=== PATIENT | female | born 1960 | race Caucasian/White ===

== ENCOUNTER → 2016-04-08 | Outpatient (CLI) | payer OTHER ==
[~2016-04-08] MED LIST: BETH25TA2 PO; IBGARD PO; LACTCAP8 PO; NEXI20CA PO; SERT50 PO
[2016-04-10 03:51] LABS: IGA SERUM 122 mg/dL (81-463); TISSUE TRANSGLUTAMINASE AB IGG ND U/mL (())
[2016-04-10 23:54] LABS: ENDOMYSIAL AB TITER ND (<1:5); TISSUE TRANSGLUTAMINASE AB LESS THAN 1 U/mL (())
== END ==
LOC: PLAB 06:51
PROVIDERS: ATTEND Internal Medicine Gastroenterology
DX: R14.0 Abdominal distension (gaseous) (principal)
CPT/HCPCS: 82784; 83516

== ENCOUNTER → 2016-05-10 | Outpatient (CLI) | payer OTHER | LOC: TMNT 11:03 | PROVIDERS: ATTEND Internal Medicine Interventional Cardiology | DX: Z71.3 Dietary counseling and surveillance (principal) ==

== ENCOUNTER → 2016-05-15 | Outpatient (CLI) | payer OTHER ==
[2016-05-15 09:48] LABS: AUTOMATED NEUTROPHIL # 2.1 TH/MM3 (1.8-7.7); EOSINOPHIL # 0.2 TH/MM3 (0-0.4); HEMATOCRIT 37.8 % (35.0-46.0); HEMO FLAGS DIFF FINAL; LYMPHOCYTE # 1.7 TH/MM3 (1.0-4.8); MEAN CELL VOLUME 91.4 FL (80.0-100.0); MEAN CORPUSCULAR HEMOGLOBIN 31.1 PG (27.0-34.0); MEAN CORPUSCULAR HGB CONC 34.1 % (32.0-36.0); PLATELET COUNT 293 TH/MM3 (150-450); RED BLOOD COUNT 4.14 MIL/MM3 (4.00-5.30); RED CELL DISTRIBUTION WIDTH 12.7 % (11.6-17.2); WHITE BLOOD COUNT 4.4 TH/MM3 (4.0-11.0)
[2016-05-15 10:08] LABS: ALKALINE PHOSPHATASE 56 U/L (45-117); ALT (GPT) 15 U/L (10-53); ANION GAP 7 MEQ/L (5-15); AST (GOT) 11 U/L (15-37); BICARBONATE 26.9 MEQ/L (21.0-32.0); BLOOD UREA NITROGEN 14 MG/DL (7-18); CHLORIDE 106 MEQ/L (98-107); FREE T4 1.12 NG/DL (0.76-1.46); GLOMERULAR FILTRATION RATE 99 ML/MIN (>89); GLUCOSE,FASTING 97 MG/DL (74-99); HDL CHOLESTEROL 71.2 MG/DL (40.0-60.0); LDL CHOLESTEROL 85 MG/DL (0-99); POTASSIUM 3.7 MEQ/L (3.5-5.1); SODIUM (NA) 140 MEQ/L (136-145); TOTAL BILIRUBIN ADULT 0.5 MG/DL (0.2-1.0)
== END ==
LOC: PLAB 06:40
PROVIDERS: ATTEND Family Medicine
DX: K58.9 Irritable bowel syndrome, unspecified (principal)
CPT/HCPCS: 80053; 80061; 84439; 84443; 85025

== ENCOUNTER → 2016-06-11 | Outpatient (CLI) | payer OTHER ==
[~2016-06-11] MED LIST changes: +INSULIN HUMAN REGULAR 1,000 UNITS/10 ML VIAL SQ PRN; +LACTATED RINGER'S 1000 ML IV SCH; +METOPROLOL TARTRATE 25 MG TAB PO PRN; +PROPOFOL 200 MG/20 ML AMP IV ONE; -SERT50 PO; +SODIUM CHLORID 0.9% 500 ML IV SCH
--- NOTE | 2016-06-11 09:59 | EKG ---
Date Performed: 06/11/2016 Time Performed: 07:56:42 PTAGE: 55 years EKG: Sinus rhythm NORMAL ECG NO PREVIOUS TRACING DOCTOR: Leroy Scott Interpretating Date/Time 06/11/2016 09:57:43
[2016-06-11 10:57] VITALS: TEMP 97.8
[2016-06-11 11:15] VITALS: BP 101/57; PULSE 62; RESP 18; O2SAT 98
--- NOTE | 2016-06-12 09:36 | MR ---
cc: KENY HEAD DATE 06/11/2016 DATE OF 1960 PROCEDURE Panendoscopy with biopsy INDICATIONS FOR THE PROCEDURE Evaluation of nausea, vomiting, abdominal bloating, abdominal pain. Photographs and biopsies were taken. PREMEDICATION Administered by anesthesiology. MONITORING Accomplished with pulse oximeter, EKG, and blood pressure monitor. PROCEDURE NOTE After informed consent was obtained, the procedure risks and benefits were explained including the risks of bleeding, sepsis, perforation, and the risks of anesthesia. The patient was placed in the left lateral position. A video endoscope was inserted in the esophagus under direct visualization. The esophagus appeared to be normal throughout. The scope was passed into the stomach. The gastric mucosa was visualized. There was very minimal antritis noted. Biopsies of the antrum were taken in retroflex view. The cardia and fundus were unremarkable. The scope was passed through the pyloric ring into the first, second and third portion of the duodenum. The duodenum was unremarkable as well. A small bowel biopsy was taken to rule out celiac sprue. The scope was then gradually withdrawn. The patient tolerated procedure well. No immediate complications were noted. IMPRESSION This examination was essentially benign. Biopsies were taken from the antrum and small bowel to rule out H. pylori and celiac sprue. The patient does have a documented poor gastric emptying on a recent nuclear study. We will continue bethanechol therapy. Continue PPI. We will increase her Nexium to twice a day. We will follow up biopsies taken and then follow up clinically as an outpatient. MD JASON West/HAYDEE /11:11 AM /9:27 AM
== END ==
LOC: HEND 07:37
PROVIDERS: ATTEND Internal Medicine Gastroenterology
DX: K29.70 Gastritis, unspecified, without bleeding (principal); K31.84 Gastroparesis; G61.0 Guillain-Barre syndrome; R14.0 Abdominal distension (gaseous); R11.2 Nausea with vomiting, unspecified; Z01.810 Encounter for preprocedural cardiovascular examination
CPT/HCPCS: 00740; 43239; 88305; 88312; 93005; J7120

== ENCOUNTER → 2016-09-26 | Outpatient (CLI) | payer OTHER ==
[~2016-09-26] MED LIST changes: -INSULIN HUMAN REGULAR 1,000 UNITS/10 ML VIAL SQ PRN; -LACTATED RINGER'S 1000 ML IV SCH; -METOPROLOL TARTRATE 25 MG TAB PO PRN; -PROPOFOL 200 MG/20 ML AMP IV ONE; -SODIUM CHLORID 0.9% 500 ML IV SCH
[2016-09-26 09:34] LABS: AUTOMATED NEUTROPHIL # 2.1 TH/MM3 (1.8-7.7); BASOPHIL % 0.9 % (0.0-2.0); EOSINOPHIL # 0.3 TH/MM3 (0-0.4); EOSINOPHIL % 5.2 % (0.0-4.0); HEMATOCRIT 39.1 % (35.0-46.0); HEMO FLAGS DIFF FINAL; LYMPH % 42.9 % (9.0-44.0); LYMPHOCYTE # 2.1 TH/MM3 (1.0-4.8); MEAN CELL VOLUME 93.2 FL (80.0-100.0); MEAN CORPUSCULAR HEMOGLOBIN 30.6 PG (27.0-34.0); MEAN CORPUSCULAR HGB CONC 32.8 % (32.0-36.0); MONO % 6.7 % (0.0-8.0); NEUT % 44.3 % (16.0-70.0); PLATELET COUNT 306 TH/MM3 (150-450); RED BLOOD COUNT 4.19 MIL/MM3 (4.00-5.30); RED CELL DISTRIBUTION WIDTH 12.8 % (11.6-17.2); WHITE BLOOD COUNT 4.8 TH/MM3 (4.0-11.0)
[2016-09-26 10:03] LABS: ALT (GPT) 20 U/L (10-53); ANION GAP 5 MEQ/L (5-15); AST (GOT) 10 U/L (15-37); BICARBONATE 29.3 MEQ/L (21.0-32.0); BLOOD UREA NITROGEN 14 MG/DL (7-18); CHLORIDE 107 MEQ/L (98-107); GLOMERULAR FILTRATION RATE 95 ML/MIN (>89); GLUCOSE,FASTING 85 MG/DL (74-99); POTASSIUM 3.9 MEQ/L (3.5-5.1); SODIUM (NA) 141 MEQ/L (136-145)
[2016-09-26 10:13] LABS: ALKALINE PHOSPHATASE 62 U/L (45-117); HDL CHOLESTEROL 67.7 MG/DL (40.0-60.0); TOTAL BILIRUBIN ADULT 0.4 MG/DL (0.2-1.0)
[2016-09-26 10:14] LABS: FOLLICLE STIMULATING HORMONE 110.9 mIU/mL; LDL CHOLESTEROL 81 MG/DL (0-99); LUTEINIZING HORMONE 57.6 mIU/mL
== END ==
LOC: PLAB 06:40
PROVIDERS: ATTEND Family Medicine
DX: K58.9 Irritable bowel syndrome, unspecified (principal); K21.0 Gastro-esophageal reflux disease with esophagitis; I47.1 Supraventricular tachycardia; G43.809 Other migraine, not intractable, without status migrainosus; R09.89 Other specified symptoms and signs involving the circulatory and respiratory systems; N95.1 Menopausal and female climacteric states
CPT/HCPCS: 80053; 80061; 82670; 83001; 83002; 84443; 85025